=== PATIENT | male | born 1990 | race Caucasian/White ===

== ENCOUNTER 2023-04-11 07:25 | Day surgery (SDC) | payer OTHER ==
[2023-04-11] VITALS (247 sets, daily range): BP systolic 96–141; BP diastolic 50–114
[~2023-04-11] VITALS: Ht 182.9 cm; Wt 86.5 kg
--- NOTE | 2023-04-11 07:30 | NUR ---
PT HAS ARRIVED TO [facility] WITH MOM; BOTH HAVE BEEN ESCORTED TO ROOM AND POC HAS BEEN EXPLAINED, ALL QUESTIONS HAVE BEEN ADDRESSED. PT IS A&OX3, FOLLOWS COMMANDS, IN NAD, PT HAS CALL LIGHT AND IS ABLE TO MAKE HIS NEEDS KNOWN. WILL CONTINUE TO MONITOR.
[2023-04-11 07:59] LABS: BASO% 0.5 % (0-3); EOS% 5.9 % (0-8); HEMATOCRIT 47.1 % (39.0-50.0); HEMOGLOBIN 14.5 g/dl (14.0-18.0); IMMATURE GRANULOCYTES 0.1 % (0.0-5.0); LYMPH% 40.2 % (15-41); MEAN CELL VOLUME 91.5 fL CALC (80.0-100.0); MEAN CORPUSCULAR HGB 28.2 pG CALC (26.0-32.0); MEAN CORPUSCULAR HGB CONC 30.8 g/dL CAL (32.0-36.0); MONO% 9.2 % (2-13); NEUT# 3.36 thou/uL (1.82-7.42); NEUT% 44.1 % (42-76); RED BLOOD COUNT 5.15 mill/uL (4.70-6.10); RED CELL DISTRI WIDTH 13.2 % (11.5-15.5)
[2023-04-11 08:09] LABS: ALBUMIN 4.5 g/dL (3.2-5.0); ALKALINE PHOSPHATASE 66 u/l (38-126); ANION GAP 14 (6-22 (CALC)); BILIRUBIN, TOTAL 0.1 mg/dL (0.2-1.3); BUN 10 mg/dL (9-20); BUN/CREATININE RATIO 12 (12-20 (CALC)); CARBON DIOXIDE 27 mmol/l (22-30); CHLORIDE 104 mmol/l (95-108); CREATININE 0.9 mg/dL (0.7-1.3); GFR FOR AFR.AMER. > 60 ML/MIN (>=60 (CALC)); GFR OTHER RACES > 60 ML/MIN (>=60 (CALC)); POTASSIUM 4.1 mmol/l (3.5-5.1); SGOT/AST 27 u/l (17-59); SODIUM 140 mmol/l (137-146); TOTAL PROTEIN 7.3 g/dL (6.3-8.2)
--- NOTE | 2023-04-11 09:15 | NUR ---
PT HAS BEEN REASSESSED. PT IS SLEEPIN COMFORTABLY. ALL NEEDS HAVE BEEN ADDRESSED. WILL CONTINUE TO MONITOR.
[2023-04-11] MEDS ORDERED: CLONIDINE0.2 MG PO (09:20)
[2023-04-11] MEDS ORDERED: SEROQUEL100 MG PO (09:20)
--- NOTE | 2023-04-11 12:00 | NUR ---
Induction Note Patient to [facility] procedure room. Time out performed at 1200. Patient placed on monitors, Mae hugger, bilateral wrist restraints applied for ET tube protection. Versed 5mg given IV push at 1201 Tourniquet applied to RIGHT arm Lidocaine 100mg given at 1202 IV push followed by Rocoronium 10mg at 1203 IV push and held for 90 seconds. Propofol bolus of 180mg given at 1205 IV push. Succinylcholine 80mg given IV push at 1206. Smooth intubation with 7.5 ETT. Positive CO2. Positive Auscultation for air exchange. Patient placed on ventilator for spontaneous ventilation. Placed on Propofol IV drip at 1207. OG inserted. Positive air on auscultation. Positive gastric content. Stomach washed at this time.
--- NOTE | 2023-04-11 12:20 | NUR ---
OG close note Stomach washed at this time. Naltrexone 50 mg with Clonidine 0.2 mg via OG tube. OG will be clamped for 45 minutes.
--- NOTE | 2023-04-11 13:05 | NUR ---
OG open note OG open at this time. Gastric content draining into drainage bag. OG to drain for 45 minutes. Propofol will be titrated down based on patient.
--- NOTE | 2023-04-11 13:50 | NUR ---
OG close note Stomach washed at this time. Naltrexone 50 mg with Clonidine 0.2 mg via OG tube. OG will be clamped for 45 minutes.
--- NOTE | 2023-04-11 15:25 | NUR ---
OG close note Stomach washed at this time. Naltrexone 50 mg with Clonidine 0.2 mg via OG tube. OG will be clamped for 45 minutes.
[2023-04-11] MEDS ORDERED: NALTREXONE50 MG PO (16:04)
[2023-04-11] MEDS ORDERED: KLONOPIN2 MG PO (16:04)
--- NOTE | 2023-04-11 18:30 | NUR ---
OG close note Stomach washed at this time. Clonidine 0.2 mg via OG tube. OG will be clamped for 45 minutes.
--- NOTE | 2023-04-11 19:35 | NUR ---
Extubation note Closing medications given Benadryl 50mg IV push, Decadron 10mg IV push,Magnesium 4 grams IV, Zofran 8mg IV push, Octreotide 100mcg SC. Stomach washed out prior to extubation. Suctioned gastric content. OG removed. Patient extubated. Propofol Discontinued. Wrist restraints removed. Mae hugger Removed. See [facility] Moderate sedate recovery record for further notes and assessment.
--- NOTE | 2023-04-11 20:18 | NUR ---
RECEIVED PATIENT TO ROOM 289. SBAR RECEIVED FROM BARRY EDMONDS. PATIENT RESTING QUIETLY, EYES CLOSED. VSS, 2L/NC; NO DISTRESS NOTED. CALL LIGHT WITHIN REACH, BED ALARM ACTIVE.
[2023-04-12 03:49] VITALS: BP 99/50
--- NOTE | 2023-04-12 04:05 | NUR ---
RESTING QUIETLY EYES CLOSED. CLONIDINE HELD FOR LOW BP. PATIENT HAS LOW GRADE FEVER OF 99.9, COOL WASHCLOTHES APPLIED TO BACK OF NECK AND MULTIPLE BLANKETS REMOVED. NO C/O PAIN AT THIS TIME, NO DISTRESS NOTED. CALL LIGHT WITHIN REACH.
[2023-04-12 05:34] LABS: ALBUMIN 3.9 g/dL (3.2-5.0); ALKALINE PHOSPHATASE 62 u/l (38-126); BUN 13 mg/dL (9-20); BUN/CREATININE RATIO 19 (12-20 (CALC)); CHLORIDE 105 mmol/l (95-108); CREATININE 0.7 mg/dL (0.7-1.3); GFR FOR AFR.AMER. > 60 ML/MIN (>=60 (CALC)); GFR OTHER RACES > 60 ML/MIN (>=60 (CALC)); MAGNESIUM 1.9 mg/dL (1.6-2.3); SGOT/AST 29 u/l (17-59); SODIUM 135 mmol/l (137-146); TOTAL PROTEIN 6.6 g/dL (6.3-8.2)
[2023-04-12 05:40] LABS: ANION GAP 13 (6-22 (CALC)); BILIRUBIN, TOTAL 0.3 mg/dL (0.2-1.3); CARBON DIOXIDE 21 mmol/l (22-30)
--- NOTE | 2023-04-12 07:00 | NUR ---
Receive report from Tiffanie REDDY. Patient resting comfortably in bed. No acute distress at this time. 2L NC placed. IVF to continue at 100 ml/hr. Safety and fall precautions in place. Call light and sitter at bedside.
[2023-04-12 07:36] VITALS: BP 122/69
[2023-04-12 08:00] VITALS: BP 122/69
[2023-04-12 08:31] VITALS: BP 122/69
--- NOTE | 2023-04-12 11:00 | NUR ---
Dr. 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 Expected discharge today. Discharge plan in progress.
--- NOTE | 2023-04-12 11:16 | NUR ---
Patient's support person (SP) telephoned with overnight update and to begin discharge planning. All questions answered satisfactorily, no concerns presented. SP agreeable to discharge plan.
--- NOTE | 2023-04-12 16:56 | NUR ---
Discharge instructions given. Patient verbalizes understanding of same. Discharged in stable condition via Wheelchair to Home with staff. All belongings sent with pt.
--- NOTE | 2023-04-12 17:15 | NUR ---
Patient discharged in stable condition. Reports mild nausea, tolerated PO intake, ambulatory with stable gait. IV's/patch removed. Patient remained alert and conversive during discharge teaching. Support person states undestanding of discharge instructions and offers no further questions. Medication education given at length. Patient and SP stated understanding.
== END 2023-04-12 16:55 | disposition home or self-care (01) | DRG 897 ==
LOC: ANR 07:25 → MS2 07:25 → ANR 11:00 → MS2 18:46 → ANR 04-12 16:55
PROVIDERS: ATTEND Anesthesiology
DX: F11.20 Opioid dependence, uncomplicated (principal)
CPT/HCPCS: J2060; J2354; J3475